=== PATIENT | male | born 1950 | race Caucasian/White ===

== ENCOUNTER 2024-02-03 05:58 | Day surgery (SDC) | payer MEDICARE, SELFPAY ==
[2023-11-20 12:49] VITALS: BMI 35.3
[2023-11-21 09:37] VITALS: BMI 34.3
--- NOTE | 2023-11-22 09:01 | P.CONAN_ITS ---
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 Left groin pain Hypogonadotropic hypogonadism Hypercholesteremia HTN (hypertension) Hip pain History of hemoptysis GERD (gastroesophageal reflux disease) Enteritis Hx of chest pain Bladder cancer Anemia Surgical History Surgical History (Updated 11/21/23 @ 09:36 by Lesley Baker RN) History of total left knee replacement (TKR) History of arthroscopy of both knees Hx of shoulder surgery H/O transurethral resection of bladder tumor (TURBT) Hx of colonoscopy Social History Social History (Updated 11/21/23 @ 09:47 by Lesley Baker RN) Are you a primary child care aide to a significant other at home: No Do you presently have visiting nurse or other home services: No Patient Tobacco Use Status: Never used Tobacco Use of substances other than those prescribed or required for medical reasons: No Substance Use Type: Opiates Substance Use Type Other:: on Suboxone 10 years Have you been hit, kicked, punched, or otherwise hurt by someone within the past year? If so, by whom?: No Are you DNR?: No Advance Directives: No Advance Directives Information Provided: Yes Advance Directives on File: No Recently lost weight without trying: No Nutrition Risks: No Nutritional Risk Meds Allergies Allergy/AdvReac Type Severity Reaction Status Date / Time No Known Allergies Allergy Verified 11/20/23 12:48 Home Medications Medication Instructions Recorded Confirmed Last Taken Type atorvastatin 20 mg tablet 20 mg PO DAILY 11/20/23 11/20/23 Unknown History buprenorphine 8 mg-naloxone 2 mg 10 mg sublingual DAILY 11/20/23 11/20/23 Unknown History sublingual film (Suboxone) lisinopril 10 mg tablet 10 mg PO DAILY 11/20/23 11/20/23 Unknown History tadalafil 10 mg tablet 10 mg PO DAILY 11/20/23 11/20/23 Unknown History tamsulosin 0.4 mg capsule 0.4 mg PO DAILY 11/20/23 11/20/23 Unknown History famotidine 20 mg tablet (Pepcid AC) 20 mg PO DAILY PRN Gastric Reflux 11/21/23 11/21/23 Unknown History Exam Height,Weight and Vital Signs: Height 5 ft 10.87 in Weight 111.13 kg Assessment and Plan Assessment Anesthesia Assessment: Chart Reviewed
--- NOTE | 2024-01-30 13:54 | P.CONAN_ITS ---
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 Left groin pain Hypogonadotropic hypogonadism Hypercholesteremia HTN (hypertension) Hip pain History of hemoptysis GERD (gastroesophageal reflux disease) Enteritis Hx of chest pain Bladder cancer Anemia Surgical History Surgical History History of total left knee replacement (TKR) History of arthroscopy of both knees Hx of shoulder surgery H/O transurethral resection of bladder tumor (TURBT) Hx of colonoscopy Social History Social History Are you a primary date night caregiver to a significant other at home: No Do you presently have visiting nurse or other home services: No Patient Tobacco Use Status: Never used Tobacco Use of substances other than those prescribed or required for medical reasons: No Substance Use Type: Opiates Substance Use Type Other:: on Suboxone 10 years Have you been hit, kicked, punched, or otherwise hurt by someone within the past year? If so, by whom?: No Are you DNR?: No Advance Directives: No Advance Directives Information Provided: Yes Advance Directives on File: No Recently lost weight without trying: No Nutrition Risks: No Nutritional Risk Meds Allergies Allergy/AdvReac Type Severity Reaction Status Date / Time No Known Allergies Allergy Verified 11/20/23 12:48 Home Medications ?Medication ?Instructions ?Recorded ?Confirmed ?Last Taken ?Type atorvastatin 20 mg tablet 20 mg PO DAILY 11/20/23 11/20/23 Unknown History buprenorphine 8 mg-naloxone 2 mg 10 mg sublingual DAILY 11/20/23 11/20/23 Un known History sublingual film (Suboxone) lisinopril 10 mg tablet 10 mg PO DAILY 11/20/23 11/20/23 Unknown History tadalafil 10 mg tablet 10 mg PO DAILY 11/20/23 11/20/23 Unknown History tamsulosin 0.4 mg capsule 0.4 mg PO DAILY 11/20/23 11/20/23 Unknown History famotidine 20 mg tablet (Pepcid AC) 20 mg PO DAILY PRN Gastric Reflux 11/21/23 11/21/23 Unknown History Exam Height,Weight and Vital Signs: Height 5 ft 10.87 in Weight 111.13 kg Assessment and Plan Assessment Anesthesia Assessment: Chart Reviewed Documented by User: Emilie Fontaine MD 02/03/24 08:30 PMFSH Past Medical History Medical History Hx of concussion (~2022) Cataracts, bilateral Shoulder pain Severe obesity (BMI 35.0-35.9 with comorbidity) Sciatica PSA elevation Osteoporosis Osteoarthritis Memory loss 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 Left groin pain Hypogonadotropic hypogonadism Hypercholesteremia HTN (hypertension) Hip pain History of hemoptysis GERD (gastroesophageal reflux disease) Enteritis Hx of chest pain Bladder cancer Anemia Family History Family history of problems with anesthesia: No Surgical History Surgical History History of total left knee replacement (TKR) History of arthroscopy of both knees Hx of shoulder surgery H/O transurethral resection of bladder tumor (TURBT) Hx of colonoscopy History of Problems with Anesthesia: No Social History Social History Are you a primary date night caregiver to a significant other at home: No Do you presently have visiting nurse or other home services: No Patient Tobacco Use Status: Never used Tobacco Use of substances other than those prescribed or required for medical reasons: No Substance Use Type: Opiates Substance Use Type Other:: on Suboxone 10 years Have you been hit, kicked, punched, or otherwise hurt by someone within the past year? If so, by whom?: No Are you DNR?: No Advance Directives: No Advance Directives Information Provided: Yes Advance Directives on File: No Recently lost weight without trying: No Nutrition Risks: No Nutritional Risk Meds Allergies Allergy/AdvReac Type Severity Reaction Status Date / Time No Known Allergies Allergy Verified 11/20/23 12:48 Home Medications ?Medication ?Instructions ?Recorded ?Confirmed ?Last Taken ?Type atorvastatin 20 mg tablet 20 mg PO DAILY 11/20/23 11/20/23 Unknown History buprenorphine 8 mg-naloxone 2 mg 10 mg sublingual DAILY 11/20/23 11/20/23 Unknown History sublingual film (Suboxone) lisinopril 10 mg tablet 10 mg PO DAILY 11/20/23 11/20/23 Unknown History tadalafil 10 mg tablet 10 mg PO DAILY 11/20/23 11/20/23 Unknown History tamsulosin 0.4 mg capsule 0.4 mg PO DAILY 11/20/23 11/20/23 Unknown History famotidine 20 mg tablet (Pepcid AC) 20 mg PO DAILY PRN Gastric Reflux 11/21/23 11/21/23 Unknown History Exam Airway Mallampati Class: II TM Dist: >3cm Neck ROM: Full Heart: rrr Lungs: cta Assessment and Plan Assessment Anesthesia Assessment: Anesthesia Plan Discussed Final Anesthetic Review Family History of Problems with Anesthesia: No History of Problems with Anesthesia: No NPO: Yes ASA Class: III Final Preanesthetic Review: No Changes in Pt Med Stat, Meds/Allgs Chart Reviewed, Consent Obtained/Reviewed and Anes Risks/Benef Reviewed Patient Risk: Intermediate Procedure Risk: Low Anesthetic Plan Anesthetic Plan: MAC: Disposition: Standard PACU
[2024-02-03 08:27] VITALS: BMI 36.4
[2024-02-03] MEDS: Tetracaine HCl/PF 0.5% Oph Sol 4 ML DROPS 1 DROP EYE-RIGHT (08:37)
[2024-02-03] MEDS: Cyclopentolate 1 % Ophth Sol 2 ML DRPBTL 1 DROP EYE-RIGHT ×3 (08:37→09:01)
[2024-02-03] MEDS: Lactated Ringers 500 ML 50 ML IV (08:38)
[2024-02-03] MEDS: Ketorolac Tromethamine 0.5% Op 5 ML DROPS 1 DROP EYE-RIGHT ×3 (08:40→09:07)
[2024-02-03] MEDS: Phenylephrine HCL 2.5% Oph SoL 2 ML BOTTLE 1 DROP EYE-RIGHT ×3 (08:43→09:10)
[2024-02-03] MEDS: Tropicamide 1 % Ophth Sol 3 ML BTL 1 DROP EYE-RIGHT ×3 (08:46→09:04)
[2024-02-03 08:47] VITALS: BP 127/55; PULSE 65; RESP 16; TEMP 37; O2SAT 95
--- NOTE | 2024-02-03 09:46 | P.PCNO_ITS ---
Ophthalmology Procedure Procedure Date of Service: 02/03/24 Ophthalmology Viscoelastic: Healon Duet Dual Pack Pro Ophthalmology Lenses: IOL Acrysof MP - MA60AC (15) Procedure Notes: PREOPERATIVE DIAGNOSIS: Decreased visual acuity right eye secondary to cataract POSTOPERATIVE DIAGNOSIS: Same PROCEDURE: Right cataract extraction with intraocular lens insertion SURGEON: Walter Hancock M.D. ANESTHESIA: Topical/MAC ESTIMATED BLOOD LOSS: None COMPLICATIONS: None After obtaining informed consent, the patient was brought to the operating room suite and placed in the supine position. After adequate sedation per anesthesia, topical drops of Tetracaine were given to the right eye. The eye was then prepped and draped in the usual sterile fashion. The operating room microscope was then positioned over the operative eye and a lid speculum placed. A paracentesis was created. Viscoelastic was then instilled into the anterior chamber. A three plane incision was then created temporally, utilizing a 2.85 mm keratome. Capsulotomy forceps were then utilized to create a circular tear capsulotomy. Hydrodissection and hydrodelineation were carried out until adequate mobilization of the nucleus occurred. Phacoemulsification was then utilized to remove the dense central nucl eus followed by removal of the cortical material utilizing the automated aspiration irrigation unit. Viscoelastic was instilled into the posterior capsular bag followed by placement of a posterior chamber intraocular lens without difficulty. The residual Viscoelastic was then removed utilizing the automated IA machine. The wound was checked and found to be watertight. The patient tolerated the procedure well and the lid speculum was removed. Intracameral injection of Vigamox 0.1 mL followed by a subtenon injection of Kenalog-40 0.2 mL were administered. The patient will be seen in the a.m.
--- NOTE | 2024-02-03 09:46 | MHC.SHP ---
Pre-Procedural Eval Section A - 24 Hr Update-Section A only Date of Service: 02/03/24 The patient is an INPATIENT: No Changes since office visit: No Cold of Flu in the past 2 weeks, No New Medical Problems, No Changes in Medication and No Patient answered all questions The patient has been examined within 24 hours of the surgical procedure. The History & Physical has been completed within 30 days and I have reviewed it.: Yes Section B - Complete if H&P > 30 days Chief Complaint: Age-related nuclear cataract, right eye Allergies: Allergies Allergy/AdvReac Type Severity Reaction Status Date / Time No Known Allergies Allergy Verified 02/03/24 09:01 Plan Diagnosis/Plan: Unchanged I have reviewed the history and physical and performed a pertinent physical examination on my patient. No changes have occurred unless specified. Time Spent With Patient Time: Total time managing care of this patient today ____ minutes.
[2024-02-03 10:25] VITALS: BP 132/64; PULSE 63; RESP 18; TEMP 36.6; O2SAT 98
== END 2024-02-03 10:28 | disposition home or self-care (01) ==
PROVIDERS: PCP Internal Medicine; Visit Provider Ophthalmology
PROC: (CPT 66985; principal; 2024-02-03 10:30)
DX: H25.11 Age-related nuclear cataract, right eye (principal); H54.7 Unspecified visual loss; H40.013 Open angle with borderline findings, low risk, bilateral; H43.393 Other vitreous opacities, bilateral; H18.413 Arcus senilis, bilateral; H52.203 Unspecified astigmatism, bilateral; H52.13 Myopia, bilateral; I10 Essential (primary) hypertension; E78.00 Pure hypercholesterolemia, unspecified; Z79.899 Other long term (current) drug therapy
CPT/HCPCS: 66984; J2250; J3010; J3301; V2630

== ENCOUNTER 2024-02-17 06:29 | Day surgery (SDC) | payer MEDICARE, SELFPAY ==
[2023-11-21 09:43] VITALS: BMI 34.3
[2024-02-17 06:45] VITALS: BP 130/77; PULSE 73; RESP 16; TEMP 36.9; O2SAT 95
[2024-02-17] MEDS: Tetracaine HCl/PF 0.5% Oph Sol 4 ML DROPS 1 DROP EYE-LEFT (06:59)
[2024-02-17] MEDS: Tropicamide 1 % Ophth Sol 3 ML BTL 1 DROP EYE-LEFT ×3 (07:02→07:11)
[2024-02-17] MEDS: Ketorolac Tromethamine 0.5% Op 5 ML DROPS 1 DROP EYE-LEFT ×3 (07:03→07:12)
[2024-02-17] MEDS: Phenylephrine HCL 2.5% Oph SoL 2 ML BOTTLE 1 DROP EYE-LEFT ×3 (07:05→07:14)
--- NOTE | 2024-02-17 07:38 | HO.ANESPROP2 ---
HPI - Anesthesia Eval Consult details Narrative: 73 yo M presenting for Left Cataract Extraction [facility]OL Insertion. 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 Left groin pain Hypogonadotropic hypogonadism Hypercholesteremia HTN (hypertension) Hip pain History of hemoptysis GERD (gastroesophageal reflux disease) Enteritis Hx of chest pain Bladder cancer Anemia Family History Family history of problems with anesthesia: No Surgical History Surgical History History of total left knee replacement (TKR) History of arthroscopy of both knees Hx of shoulder surgery H/O transurethral resection of bladder tumor (TURBT) Hx of colonoscopy History of Problems with Anesthesia: No Social History Social History Are you a primary senior resident care director to a significant other at home: No Do you presently have visiting nurse or other home services: No Patient Tobacco Use Status: Never used Tobacco Use of substances other than those prescribed or required for medical reasons: No Substance Use Type: Opiates Have you been hit, kicked, punched, or otherwise hurt by someone within the past year? If so, by whom?: No Are you DNR?: No Advance Directives: No Advance Directives Information Provided: Yes Advance Directives on File: No Recently lost weight without trying: No Nutrition Risks: No Nutritional Risk Poor oral hygiene: No Meds Allergies Allergy/AdvReac Type Severity Reaction Status Date / Time No Known Allergies Allergy Verified 02/17/24 06:52 Active Medications: Current Medications Povidone Iodine (Povidone Iodine 5 % Ophth Soln 30 Ml Bottle) 1 appl EYE-LEFT PREOP PRN PRN Reason: Pre-Op Surgical Implant Prophy Home Medications ?Medication ?Instructions ?Recorded ?Confirmed ?Last Taken ?Type atorvastatin 20 mg tablet 20 mg PO DAILY 11/20/23 02/17/24 Unknown History buprenorphine 8 mg-naloxone 2 mg 10 mg sublingual DAILY 01/02/17/24 02/17/24 05:30 History sublingual film (Suboxone) lisinopril 10 mg tablet 10 mg PO DAILY 11/20/23 02/17/24 02/17/24 05:30 History tadalafil 10 mg tablet 10 mg PO DAILY 11/20/23 02/17/24 Unknown History tamsulosin 0.4 mg capsule 0.4 mg PO DAILY 11/20/23 02/17/24 Unknown History famotidine 20 mg tablet (Pepcid AC) 20 mg PO DAILY PRN Gastric Reflux 11/21/23 02/17/24 Unknown History Exam Exam Date and Time: February 17, 2024 0738 Height,Weight and Vital Signs: Height 5 ft 10.87 in Weight 111.13 kg Last Vital Signs Temp 98.4 F 02/17/24 06:45 Pulse 73 02/17/24 06:45 Resp 16 02/17/24 06:45 BP 130/77 02/17/24 06:45 Pulse Ox 95 02/17/24 06:45 O2 Del Method Room Air 02/17/24 06:45 Airway Mallampati Class: II TM Dist: >3cm Neck ROM: Full Loose/Missing/Broken Teeth: No (patient denies any loose or broken teeth) Heart: S1S2 Lungs: CTAB Assessment and Plan Assessment Anesthesia Assessment: Anesthesia Plan Discussed and Chart Reviewed Final Anesthetic Review Family History of Problems with Anesthesia: No History of Problems with Anesthesia: No NPO: Yes ASA Class: III Final Preanesthetic Review: No Changes in Pt Med Stat, Meds/Allgs Chart Reviewed, Consent Obtained/Reviewed and Anes Risks/Benef Reviewed Patient Risk: Low Procedure Risk: Low Anesthetic Plan Anesthetic Plan: MAC: and Agree w/ Assess. and Plan Disposition: Standard PACU
--- NOTE | 2024-02-17 08:09 | MHC.SHP ---
Pre-Procedural Eval Section A - 24 Hr Update-Section A only Date of Service: 02/17/24 The patient is an INPATIENT: No Changes since office visit: No Cold of Flu in the past 2 weeks, No New Medical Problems, No Changes in Medication and No Patient answered all questions The patient has been examined within 24 hours of the surgical procedure. The History & Physical has been completed within 30 days and I have reviewed it.: Yes Section B - Complete if H&P > 30 days Chief Complaint: Age-related nuclear cataract, left eye Allergies: Allergies Allergy/AdvReac Type Severity Reaction Status Date / Time No Known Allergies Allergy Verified 02/17/24 06:52 Plan Diagnosis/Plan: Unchanged I have reviewed the history and physical and performed a pertinent physical examination on my patient. No changes have occurred unless specified. Time Spent With Patient Time: Total time managing care of this patient today ____ minutes.
--- NOTE | 2024-02-17 08:09 | HO.PNOPHT ---
Ophthalmology Procedure Procedure Date of Service: 02/17/24 Ophthalmology Viscoelastic: Healon Duet Dual Pack Pro Ophthalmology Lenses: IOL Acrysof MP - MA60AC (15) Procedure Notes: PREOPERATIVE DIAGNOSIS: Decreased visual acuity left eye secondary to cataract POSTOPERATIVE DIAGNOSIS: Same PROCEDURE: Left cataract extraction with intraocular lens insertion SURGEON: Walter Hancock M.D. ANESTHESIA: Topical/MAC ESTIMATED BLOOD LOSS: None COMPLICATIONS: None After obtaining informed consent, the patient was brought to the operation room suite and placed in the supine position. After adequate sedation per anesthesia, topical drops of Tetracaine were given to the left eye. The eye was then prepped and draped in the usual sterile fashion. The operating room microscope was then positioned over the operative eye and a lid speculum placed. A paracentesis was created. Viscoelastic was then instilled into the anterior chamber. A three plane incision was then created temporally, utilizing a 2.85 mm keratome. Capsulotomy forceps were then utilized to create a circular tear capsulotomy. Hydrodissection and hydrodelineation were carried out until adequate mobilization of the nucleus occurred. Phacoemulsification was then utilized to remove the dense central nucleus followed by removal of the cortical material utilizing the automated aspiration irrigation unit. Viscoat elastic was instilled into the posterior capsular bag followed by placement of a posterior chamber intraocular lens without difficulty. The residual Viscoat elastic was then removed utilizing the automated IA machine. The wound was check and found to be watertight. The patient tolerated the procedure well and the lid speculum was removed. Intracameral injection of Vigamox 0.1 mL followed by a subtenon injection of Kenalog-40 0.2 mL were administered. The patient will be seen in the a.m.
[2024-02-17 08:39] VITALS: BP 129/64; PULSE 58; RESP 16; TEMP 36.5; O2SAT 97
== END 2024-02-17 08:51 | disposition home or self-care (01) ==
PROVIDERS: PCP Internal Medicine; Visit Provider Ophthalmology
PROC: (CPT 66985; principal; 2024-02-17 08:20)
DX: H25.12 Age-related nuclear cataract, left eye (principal); H54.7 Unspecified visual loss; H40.013 Open angle with borderline findings, low risk, bilateral; H52.13 Myopia, bilateral; H43.393 Other vitreous opacities, bilateral; H18.413 Arcus senilis, bilateral; H25.013 Cortical age-related cataract, bilateral; H52.203 Unspecified astigmatism, bilateral; I10 Essential (primary) hypertension; C67.9 Malignant neoplasm of bladder, unspecified; E78.00 Pure hypercholesterolemia, unspecified; D64.9 Anemia, unspecified; M81.0 Age-related osteoporosis without current pathological fracture; Z79.891 Long term (current) use of opiate analgesic; Z79.899 Other long term (current) drug therapy; Z98.890 Other specified postprocedural states
CPT/HCPCS: 66984; J2250; J3010; J3301; V2630